=== PATIENT | female | born 1990 | race Caucasian/White ===

== ENCOUNTER 2019-02-20 20:47 | Emergency (ER) | payer OTHER ==
[2019-02-20] MEDS ORDERED: SODIUM CHLORIDE 0.9% 1000ML 1,000 ML IVS PRN (21:11)
[2019-02-20] MEDS ORDERED: KETOROLAC TROMETHAMINE INJ 30 MG/ML VIAL IV ONE (21:11)
[2019-02-20] MEDS ORDERED: METOCLOPRAMIDE HCL INJ 10 MG/2 ML VIAL IV ONE (21:11)
[2019-02-20] MEDS ORDERED: diphenhydrAMINE HCL 50 MG/ML VIAL IV ONE (21:12)
--- NOTE | 2019-02-20 21:17 | ED.PDOC ---
History of Present Illness - General Chief Complaint: Headache Stated Complaint: headache Time Seen by Provider: 02/20/19 21:01 Source: patient, family - History of Present Illness Initial Comments: 29 yo otherwise healthy F who presents for PINK, onset 20 days ago, pressure, starts from the back of her head, radiates up, becomes tolerable with motrin, however tonight was intolerable and presented to the ED. Family member, that lives outside the household, had viral meningitis two weeks ago. Pt has been under a lot of stress recently. Intermittent RUE tingling when wakes up in the morning from sleeping on that side and resolves on its own, no numbness or tingling currently, has seen a chiropractor in the past for sx, no recent manipulation or trauma prior to onset of headache. Denies f/c, cough, congestion, neck pain, neck stiffness, weakness, numbness, recent travel, n/v, change in vision. Allergies/Adverse Reactions: Allergies NO KNOWN ALLERGY Allergy (Verified 02/20/19 21:14) Home Medications: Ambulatory Orders Amphetamine-Dextroamphetamine [Adderall Xr 20 mg] 1 cap PO DAILY 02/20/19 Vfmfitzxii-Wtxawmxhmsuet-Xchzy [Fioricet] 1 cap PO Q6HR PRN #12 cap 02/20/19 Review of Systems - Review of Systems Constitutional: Denies: chills, fever EENTM: Denies: blurred vision, double vision Respiratory: Denies: cough, short of breath Cardiology: Denies: chest pain, palpitations Gastrointestinal/Abdominal: Denies: abdominal pain, diarrhea, nausea Genitourinary: Denies: dysuria, hematuria Musculoskeletal: Denies: back pain, muscle pain, muscle stiffness, neck pain Skin: Denies: lesions, rash Neurological: States: headache. Denies: numbness, weakness Hematologic/Lymphatic: Denies: easy bruising, swollen glands Past Medical History (General) - Patient Medical History Hx Seizures: No Hx Stroke: No Hx Dementia: No Hx Asthma: No Hx of COPD: No Hx Cardiac Disorders: No Hx Congestive Heart Failure: No Hx Diabetes: No Hx Gastroesophageal Reflux: No Hx Renal Disease: No Surgical History: no surgical history - Vaccination History Hx Tetanus, Diphtheria Vaccination: Yes Hx Influenza Vaccination: Yes Hx Pneumococcal Vaccination: No Immunizations Up to Date: Yes - Social History Hx Tobacco Use: No Hx Alcohol Use: No Hx Substance Use: No Hx Depression: No - Activities of Daily Living Hospice Agency (if applicable):: None - Female History Patient is a Female of Child Bearing Age (10 -59 yrs old): Yes Patient : No - Triage Comment ED Triage Comment: pt voices that she has had a headache for 20 days, using ibuprofen to manage the pain. pt voices occasional vision spots and occasional dizziness. Family Medical History - Family History Father Hx Family Hypertension: Yes Physical Exam - Physical Exam General Appearance: Alert, No apparent distress, Well Developed, Well Groomed, Well Hydrated, Well Nourished Eyes, Ears, Nose, Throat Exam: PERRL/EOMI, other - No photophobia Neck: non-tender, full range of motion, supple, normal inspection Cardiovascular/Chest: normal peripheral pulses, regular rate, rhythm, no edema, no gallop, no JVD, no murmur Respiratory: lungs clear, normal breath sounds, no respiratory distress, no accessory muscle use Gastrointestinal/Abdominal: non tender, soft Back Exam: normal inspection, no CVA tenderness, no vertebral tenderness Extremity: normal range of motion, normal inspection 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 02/20/19 22:05 Pt rechecked, doing well, headache completely resolved. I have explained and reviewed all results with the pt. I explained that emergent conditions may arise and to return to the ER for new, worsening, or any persistent conditions. I've explained the importance of f/u for recheck. All questions and concerns addressed at this time. Pt understands and agrees with plan. Pt well appearing, NAD, is stable for discharge. Nany Solano MD Emergency Medicine Physician Billing Number [id number] - Results/Orders Results/Orders: 02/20/19 21:11 Sodium Chloride 0.9% 1000ML [Ns 1000 ml] 1,000 ml IVS .QD Laboratory Results - last 24 hr 02/20/19 21:00 Urine HCG, Qual Negative Departure - Departure Clinical Impression: Headache Qualifiers: Headache chronicity pattern: acute headache Intractability: not intractable Time of Disposition: 22:38 Disposition: Discharge to Home or Self Care Health Concerns: Condition: Fair Departure Forms: ED Discharge - Pt. Copy, Patient Portal Self Enrollment Instructions: DI for Headache Referrals: JANELLE ELIAS [Primary Care Provider] - 1-2 Weeks Prescriptions: Glneprjxjf-Jdtsgyiehlzcx-Jcjjr [Fioricet] 1 cap PO Q6HR PRN #12 cap PRN Reason: Headache/Migraine Pain Home Medications: Ambulatory Orders Amphetamine-Dextroamphetamine [Adderall Xr 20 mg] 1 cap PO DAILY 02/20/19 Ennyrfwvbd-Ozozpybrzsdkf-Dannb [Fioricet] 1 cap PO Q6HR PRN #12 cap 02/20/19 Additional Instructions: Follow up: [facility] [place] As needed, if symptoms worsen
[2019-02-20 22:41] VITALS: BP 132/80; TEMP 98.4; O2SAT 99
== END 2019-02-20 22:41 | disposition home or self-care (01) ==
LOC: ER 20:47
DX: R51 Headache (principal)
CPT/HCPCS: 36415; 81025; J1200; J1885; J2765; J7030